=== PATIENT | female | born 1980 | race Caucasian/White ===

== ENCOUNTER → 2018-06-30 | Outpatient (REF) ==
[~2018-06-30] MED LIST: EFFE150C OR
== END ==
LOC: M EMP 13:59
PROVIDERS: ATTEND Nurse Practitioner Family
DX: Z02.89 Encounter for other administrative examinations (principal)

== ENCOUNTER → 2020-11-11 | Outpatient (CLI) | payer OTHER ==
[2020-11-11 05:57] LABS: BASO # 0.1 10^3/uL (0.0-0.2); BASO % 1.2 % (0.0-1.0); EOS # 0.1 10^3/uL (0.0-0.5); EOS % 1.4 % (0.0-3.0); HEMATOCRIT 41.4 % (36.0-47.0); HEMOGLOBIN 13.9 g/dl (12.0-15.5); LYMPH # 2.6 10^3/uL (1.5-5.0); LYMPH % 37.5 % (24.0-44.0); MEAN CORPUSCULAR HEMOGLOBIN 29.2 pg (27.0-33.0); MEAN CORPUSCULAR HGB CONC 33.6 g/dl (32.0-36.5); MONO # 0.6 10^3/uL (0.0-0.8); NEUTROPHILS # 3.6 10^3/uL (1.5-8.5); NEUTROPHILS % 51.8 % (36.0-66.0); PLATELET COUNT, AUTOMATED 278 10^3/uL (150-450); RED BLOOD COUNT 4.76 10^6/uL (4.00-5.40); WHITE BLOOD COUNT 6.9 10^3/uL (4.0-10.0)
[2020-11-11 06:15] LABS: HEMOGLOBIN A1c 5.1 %
[2020-11-11 06:38] LABS: ALBUMIN 4.3 GM/DL (3.2-5.2); ALT/SGPT 22 U/L (12-78); BILIRUBIN,TOTAL 0.3 MG/DL (0.2-1.0); BLOOD UREA NITROGEN 12 MG/DL (7-18); CALCIUM LEVEL 8.6 MG/DL (8.5-10.1); CARBON DIOXIDE LEVEL 31 MEQ/L (21-32); CHLORIDE LEVEL 105 MEQ/L (98-107); CHOLESTEROL LEVEL 161 MG/DL (<200); CHOLESTEROL RISK RATIO 3.096 (<5); CREATININE FOR GFR 0.66 MG/DL (0.55-1.30); FREE T4 0.96 NG/DL (0.76-1.46); GLOMERULAR FILTRATION RATE > 60.0 (>60); GLUCOSE, FASTING 90 MG/DL (70-100); HDL CHOLESTEROL 52 MG/DL (>40); LDL CHOLESTEROL 81 MG/DL (<100); NON-HDL-C 109 MG/DL; POTASSIUM SERUM 3.9 MEQ/L (3.5-5.1); SODIUM LEVEL 139 MEQ/L (136-145); TOTAL PROTEIN 7.4 GM/DL (6.4-8.2); TRIGLYCERIDES LEVEL 138 MG/DL (<150)
[2020-11-11 08:17] LABS: TOTAL 25(OH) VITAMIN D 48.7 NG/ML (30.0-100.0)
== END ==
LOC: M LAB 05:31
PROVIDERS: ATTEND Nurse Practitioner Family
DX: R53.83 Other fatigue (principal); E55.9 Vitamin D deficiency, unspecified; Z13.220 Encounter for screening for lipoid disorders; Z13.228 Encounter for screening for other metabolic disorders

== ENCOUNTER → 2020-11-25 | Outpatient (REF) | LOC: M EMP 12:34 | PROVIDERS: ATTEND Family Medicine | DX: Z20.822 Contact with and (suspected) exposure to COVID-19 (principal) ==

== ENCOUNTER → 2020-12-28 | Outpatient (CLI) | payer BC | LOC: M LAB 06:04 | PROVIDERS: ATTEND Nurse Practitioner Family | DX: Z01.84 Encounter for antibody response examination (principal) ==

== ENCOUNTER → 2021-01-19 | Outpatient (REF) | LOC: M EMP 09:23 | PROVIDERS: ATTEND Family Medicine | DX: Z11.52 Encounter for screening for COVID-19 (principal) ==

== ENCOUNTER 2021-01-22 15:40 | Emergency (ER) | payer BC ==
[~2021-01-22] VITALS: Ht 170.2 cm; Wt 72.2 kg
[~2021-01-22 15:40] MED LIST changes: -PRED20TA PO; -VENTAER INH
[2021-01-22 15:41] VITALS: BP 139/68
--- OUTSIDE RECORDS SUMMARY | 2021-01-22 15:47 | CCD ---
Author Author [facility] Organization [facility] Address Unknown Phone Unavailable Care Team Providers Care Transaction Advisory Services Manager Name Role Phone Bri Barajas Unavailable PROBLEMS Type Condition ICD9-CM Code [id number] Code Onset Dates Condition S tatus W/U Status Risk SNOMED Code Notes Problem Anxiety F41.9 Active confirmed 99021385 Problem Vitamin D deficiency, unspecified E55.9 Active con firmed [id number] ALLERGIES Allergen (clinical drug ingredient) Drug/Non Drug Allergy do cumented on EMR Reaction Allergy Type Onset Date Status Effexor Bleeding diathesis Drug Allergy Acti ve ENCOUNTERS from 1982 to 2021-01-06 Encounter Location Date Provider Diagnosis [address] [phone] [place] [address] Jan, Bri Barajas Anxiety F41.9 IMMUNIZATIONS No Information SOCIAL HISTORY Sex Assigned At : Social History Observation Description Sex Assigned At Unknown Education: Question Answer Notes Level of Education: Graduate Language: Question Answer Notes Languages spoken: Ukrainian Oriental Orthodox: Question Answer Notes Oriental Orthodox 08 Church Sexual Hx: Question Answer Notes Had sex in the last 12 months (vaginal, oral, or anal)? Yes LMP: mirena Alcohol Screening: Question Answer Notes Did you have a drink containing alcohol in the past year? Ye s Points 1 Interpretation Negative How often did you have six or more drinks on one occas ion in the past year? Never (0 points) How many drinks did you have on a typica l day when you were drinking in the past year? 1 or 2 (0 points) How often did you have a drink containing alcohol in t he past year? Monthly or less (1 point) REASON FOR REFERRAL No Information VITAL SIGNS No information MEDICATIONS Medication SIG (Take, Route, Frequency, Duration) Notes Start Da te End Date Status Escitalopram Oxalate 10 MG 1 tablet Orally Once a day for 90 day (s) Nov, Active PROCEDURES No Information RESULTS No Results REASON FOR VISIT lexapro MEDICAL (GENERAL) HISTORY Type Description Date Medical History h/o childhood asthma Medical History h/o depression Medical History tick bourne illness Medical History leep Medical History D/c after miscarriage Surgical History brest augmentation 06/2020 Hospitalization History childbirths Goals Section No Information Health Concerns No Information MEDICAL EQUIPMENT No Information MENTAL STATUS No Information FUNCTIONAL STATUS No Information ASSESSMENTS Encounter Date Diagnosis Assessment Notes Treatment Notes Treatm ent Clinical Notes Jan, Anxiety (ICD-10 - F41.9) PLAN OF TREATMENT Medication Medication Name Sig Start Date Stop Date Escitalopram Oxalate 10 MG 1 tablet Orally Once a day for 90 day(s) Nov, Insurance Providers Payer Name Payer Address Payer Phone Insured Name Patient Relati onship to Insured Coverage Start Date Coverage End Date [facility] [address] [id number] [facility] [phone] self
--- OUTSIDE RECORDS SUMMARY | 2021-01-22 15:47 | CCD ---
Author Author [facility] Organization [facility] Address Unknown Phone Unavailable Care Team Providers Care Laser Cutter Name Role Phone Bri Barajas Unavailable PROBLEMS Type Condition ICD9-CM Code [id number] Code Onset Dates Condition S tatus W/U Status Risk SNOMED Code Notes Problem Anxiety F41.9 Active confirmed [id number] Problem Vitamin D deficiency, unspecified E55.9 Active con firmed [id number] ALLERGIES Allergen (clinical drug ingredient) Drug/Non Drug Allergy do cumented on EMR Reaction Allergy Type Onset Date Status Effexor Bleeding diathesis Drug Allergy Acti ve ENCOUNTERS from 1982 to 2021-01-05 Encounter Location Date Provider Diagnosis [address] [phone] [place] [address] Jan, Bri Barajas Anxiety F41.9 IMMUNIZATIONS No Information SOCIAL HISTORY Sex Assigned At : Social History Observation Description Sex Assigned At Unknown Education: Question Answer Notes Level of Education: Graduate Language: Question Answer Notes Languages spoken: Icelandic Christian: Question Answer Notes Christian 08 Gnosticist Sexual Hx: Question Answer Notes Had sex [...] Information RESULTS No Results REASON FOR VISIT refill-lexapro MEDICAL (GENERAL) HISTORY Type Description Date Medical [...] Insured Coverage Start Date Coverage End Date [facility] [address] [id number] [facility] [id number] self
--- OUTSIDE RECORDS SUMMARY | 2021-01-22 15:47 | CCD ---
Author Author [facility] Organization [facility] Address Unknown Phone Unavailable Care Team Providers Care Cigar Wrapper Name Role Phone Bri Barajas Unavailable PROBLEMS Type Condition ICD9-CM Code [id number] Code Onset Dates Condition S tatus W/U Status Risk SNOMED Code Notes Problem Anxiety F41.9 Active confirmed [id number] Problem Vitamin D deficiency, unspecified E55.9 Active con firmed [id number] ALLERGIES Allergen (clinical drug ingredient) Drug/Non Drug Allergy do cumented on EMR Reaction Allergy Type Onset Date Status Effexor Bleeding diathesis Drug Allergy Acti ve ENCOUNTERS from 1982 to 2020-12-24 Encounter Location Date Provider Diagnosis [address] [phone] [place] [address] Dec, Bri Barajas Immunity to hepatitis B viru s demonstrated by serologic test Z01.84 and Immunity to varicella determined by serologic test Z01.84 IMMUNIZATIONS No Information SOCIAL HISTORY Sex Assigned At : Social History Observation Description Sex Assigned At Unknown Education: Question Answer Notes Level of Education: Graduate Language: Question Answer Notes Languages spoken: Polish Anabaptist: Question Answer Notes Anabaptist 08 [employer] Sexual Hx: Question Answer Notes Had sex [...] 1 tablet Orally Once a day for 30 day (s) Nov, Active PROCEDURES No Information RESULTS No Results REASON FOR VISIT clinical rotation titers MEDICAL (GENERAL) HISTORY Type Description Date Medical [...] Notes Treatment Notes Treatm ent Clinical Notes Dec, Immunity to hepatitis B viru s demonstrated by serologic test (ICD- 10 - Z01.84) Dec, Immunity to varicella determ ined by serologic test (ICD-10 - Z01.84) PLAN OF TREATMENT Medication Medication Name Sig Start Date Stop Date Escitalopram Oxalate 10 MG 1 tablet Orally Once a day for 30 day(s) Nov, Treatment Notes Test Name Order Date HEPATITIS B SURFACE ANTIBODY 2020-12-23 HERPES ZOSTER, VARICELLA IgG 2020-12-23 Insurance Providers Payer Name Payer Address Payer Phone Insured Name Patient Relati onship to Insured Coverage Start Date Coverage End Date [facility] [address] [id number] [facility] [phone] self
--- OUTSIDE RECORDS SUMMARY | 2021-01-22 15:47 | CCD ---
Author Author [facility] Organization [facility] Address Unknown Phone Unavailable Care Team Providers Care Patternmaker Bench Name Role Phone Bri Barajas Unavailable PROBLEMS Type Condition ICD9-CM Code [id number] Code Onset Dates Condition S tatus W/U Status Risk SNOMED Code Notes Problem Anxiety F41.9 Active confirmed [id number] Problem Vitamin D deficiency, unspecified E55.9 Active con firmed [id number] ALLERGIES Allergen (clinical drug ingredient) Drug/Non Drug Allergy do cumented on EMR Reaction Allergy Type Onset Date Status Effexor Bleeding diathesis Drug Allergy Acti ve ENCOUNTERS from 1982 to 2020-11-13 Encounter Location Date Provider Diagnosis [address] [phone] [place] [address] Nov, Bri Barajas Encounter to establish care Z76.89 ; Annual physical exam Z00.00 ; Screening for lipid disorders Z13.220 ; Screening for metabolic disorder Z13.228 ; Fatigue, unspecified type R53.83 ; Vitamin D deficiency, unspecified E55.9 and Anxiety F41.9 IMMUNIZATIONS No Information SOCIAL HISTORY Sex Assigned At : Social History Observation Description Sex Assigned At Unknown Education: Question Answer Notes Level of Education: Graduate Language: Question Answer Notes Languages spoken: Frisian Jain: Question Answer Notes Jain 08 Cheondoism Sexual Hx: Question Answer Notes Had sex [...] REASON FOR REFERRAL No Information VITAL SIGNS Weight 163 lbs Nov, Weight-kg 73.94 kg Nov, Height 67 in Nov, BMI 25.53 kg/m2 Nov, Heart Rate 78 /min Nov, Respiratory Rate 16 /min Nov, Temperature 97.4 degrees Fahrenheit Nov, Oximetry 100% Nov, Blood pressure systolic 118 mm Hg Nov, Blood pressure diastolic 72 mm Hg Nov, MEDICATIONS Medication SIG (Take, Route, Frequency, Duration) Notes Start Da te End Date Status Escitalopram Oxalate 10 MG 1 tablet Orally Once a day for 30 day (s) Nov, Active PROCEDURES No Information RESULTS Component Value Reference Range CBC with Differential Reviewed date:11/11/2020 07:52:53 Interpretation: Performing Lab:[facility], [facility] [address] [address] , ,[facility] WHITE BLOOD COUNT 6.9 4.0-10.0 RED BLOOD COUNT 4.76 4.00-5.40 HEMOGLOBIN 13.9 12.0-15.5 HEMATOCRIT 41.4 36.0-47.0 MEAN CORPUSCULAR VOLUME 87.0 80.0-96.0 MEAN CORPUSCULAR HEMOGLOBIN 29.2 27.0-33.0 MEAN CORPUSCULAR HGB CONC 33.6 32.0-36.5 RED CELL DISTRIBUTION WIDTH 12.0 11.5-14.5 PLATELET COUNT, AUTOMATED 278 150-450 NEUTROPHILS % 51.8 36.0-66.0 LYMPH % 37.5 24.0-44.0 MONO % 8.0 2.0-8.0 EOS % 1.4 0.0-3.0 BASO % 1.2 0.0-1.0 NEUTROPHILS # 3.6 1.5-8.5 LYMPH # 2.6 1.5-5.0 MONO # 0.6 0.0-0.8 EOS # 0.1 0.0-0.5 BASO # 0.1 0.0-0.2 Comprehensive Metabolic Profile (CMP) Reviewed date:11/11/2020 11:10:19 Interpretation: Performing Lab:[facility] [address] [facility] [address] , ,[place] [address] GLUCOSE, FASTING 90 70-100 BLOOD UREA NITROGEN 12 7-18 CREATININE FOR GFR 0.66 0.55-1.30 GLOMERULAR FILTRATION RATE > 60.0 >60 SODIUM LEVEL 139 136-145 POTASSIUM SERUM 3.9 3.5-5.1 CHLORIDE LEVEL 105 98-107 CARBON DIOXIDE LEVEL 31 21-32 CALCIUM LEVEL 8.6 8.5-10.1 AST/SGOT 13 7-37 ALT/SGPT 22 12-78 ALKALINE PHOSPHATASE 50 45-117 BILIRUBIN,TOTAL 0.3 0.2-1.0 TOTAL PROTEIN 7.4 6.4-8.2 ALBUMIN 4.3 3.2-5.2 ALBUMIN/GLOBULIN RATIO 1.4 1.2-2.2 HEMOGLOBIN A1c Reviewed date:11/11/2020 07:52:43 Interpretation: Performing Lab:[facility] [address] [facility] [address] , ,[place] [address] HEMOGLOBIN A1c 5.1 ESTIMATED AVERAGE GLUCOSE 100 60-110 LIPID PANEL (CARDIAC RISK) Reviewed date:11/11/2020 11:10:23 Interpretation: Performing Lab:[facility] [address] [address] , ,[place] [address] TRIGLYCERIDES LEVEL 138 <150 CHOLESTEROL LEVEL 161 <200 HDL CHOLESTEROL 52 >40 LDL CHOLESTEROL 81 <100 NON-HDL-C 109 CHOLESTEROL RISK RATIO 3.096 <5 FREE T4 & TSH PANEL Reviewed date:11/11/2020 11:10:28 Interpretation: Performing Lab:[facility] [address] [facility] [address] , ,[place] [address] THYROID STIMULATING HORMONE 2.920 0.358-3.740 FREE T4 0.96 0.76-1.46 VITAMIN D 25-HYDROXY Reviewed date:11/11/2020 11:10:34 Interpretation: Performing Lab:[facility], [facility] [address] [facility] [facility] [id number] , ,[place] [address] TOTAL 25(OH) VITAMIN D 48.7 30.0-100.0 REASON FOR VISIT OFFICE REP - to Establish MEDICAL (GENERAL) HISTORY Type Description Date Medical [...] Notes Treatment Notes Treatm ent Clinical Notes Nov, Encounter to establish care (ICD-10 - Z76.89) Establishing care Nov, Annual physical exam (ICD-10 - Z00.00) obtai labs Nov, Screening for lipid disorders (ICD-10 - Z13.220) screening Nov, Screening for metabolic disorder (ICD-10 - Z13.2 28) screening Nov, Fatigue, unspecified type (ICD-10 - R53.83) obtain labs Nov, Vitamin D deficiency, unspecified (ICD-10 - E55. 9) Nov, Anxiety (ICD-10 - F41.9) CBT measures discussed S SI/[place] Trial of lexapro meds effects /side effects discussed PLAN OF TREATMENT Medication Medication Name Sig Start Date Stop Date Escitalopram Oxalate 10 MG 1 tablet Orally Once a day for 30 day(s) Nov, Treatment Notes Assessment Notes Clinical Notes Encounter to establish care Establishing care Annual physical exam obtai labs Screening for lipid disorders screening Screening for metabolic disorder screeni ng Fatigue, unspecified type obtain labs Anxiety CBT measures discuss edS SI/HITrial of lexapromeds effects /side effects discussed Future Test Test Name Order Date CBC with Differential [id number] Comprehensive Metabolic Profile (CMP) [id number] LIPID PANEL (CARDIAC RISK) [id number] HEMOGLOBIN A1c [id number] FREE T4 & TSH PANEL [id number] VITAMIN D 25-HYDROXY [id number] Next Appt Details 1 Year Reason: Insurance Providers Payer Name Payer Address Payer Phone Insured Name Patient Relati onship to Insured Coverage Start Date Coverage End Date [facility] [id number] [facility] [phone] self
--- OUTSIDE RECORDS SUMMARY | 2021-01-22 15:47 | CCD | Continuity of Care Document ---
Author Author Giulia JULES Organization Unknown Address [address] [place] [address] Phone [phone] Care Team Providers Care System Safety Manager Name Role Phone Walker Araya MD [facility] [phone] Problems Active Problems Provider Date Breast lump Daphne Hernandez WHNP Onset: 06/26/2015 Social History Type Date Description Comments Sex Unknown Tobacco Use Start: Unknown Non-smoker, Non-drinker, Non-louisa g User Recreational Drug Use Former Marijuana Use Tobacco Use Start: Unknown Patient has never smoked Smoking Status Reviewed: 10/28/20 Patient has never smoked Tattoo/Piercing Tattoo Tattoo/Piercing Pierced ears Sun Exposure moderate amount of sun exposure Seat Belt/Car Seat always uses seat belt Allergies, Adverse Reactions, Alerts Active Allergies Reaction Severity Comments Date Nkda 02/07/2006 Medications Active Medications SIG Qnty Indications Ordering Provide r Date Metronidazole 500mg Tablets one tab by mouth twice a day x 7 days 14tabs Columba Jules MD Mirena (52 MG) 20mcg/24HR IUD 1units Z30.8 Columba Jules MD 12/07/2019 Neurontin 100mg Capsules Unknown Claritin 10mg Tablets one by mouth daily as needed Unknown Immunizations Description No Information Available Vital Signs Date Vital Result Comment 12/07/2019 2:00pm BP Systolic 106 mmHg BP Diastolic 62 mmHg Height 66 inches 5'6" Weight 158.00 lb BMI (Body Mass Index) 25.5 kg/m2 BSA (Body Surface Area) 1.81 m2 06/26/2015 10:32am BP Systolic 124 mmHg BP Diastolic 82 mmHg Height 66 inches 5'6" Weight 149.00 lb BMI (Body Mass Index) 24.0 kg/m2 BSA (Body Surface Area) 1.76 m2 Last Menstrual Period [id number] Results Description No Information Available Procedures Date Code Description Status 10/28/2020 03760 Office/Outpatient Established Claudine w MDM 20-29 Min Completed Medical Devices Description No Information Available Encounters Type Date Location Provider Dx Diagnosis Office Visit 10/28/2020 8:30a [facility] car dispatcher Columba Jules MD N7 6.0 Acute vaginitis Assessments Date Code Description Provider 10/28/2020 N76.0 Acute vaginitis Columba Jules Plan of Treatment Future Appointment(s):* 12/19/2020 2:00 pm - Columba Jules MD at [facility] car dispatcher 10/28/2020 - Columba Jules MD* N76.0 Acute vaginitis Functional Status Description No Information Available Mental Status Description No Information Available Referrals Description No Information Available
--- OUTSIDE RECORDS SUMMARY | 2021-01-22 15:48 | CCD ---
Author Author [facility] Organization [facility] Address Unknown Phone Unavailable Care Team Providers Care Personnel And Payroll Technician Name Role Phone MEGGAN, A CHIP GILMORE Unavailable Unavailable MEGGAN, A CHIP GILMORE Unavailable Unavailable MEGGAN, A CHIP GILMORE Unavailable Unavailable MEGGAN, A CHIP GILMORE Unavailable Unavailable MEGGAN, A CHIP GILMORE Unavailable Unavailable MEGGAN, A CHIP GILMORE Unavailable Unavailable MEGGAN, A CHIP GILMORE Unavailable Unavailable MEGGAN, A CHIP GILMORE Unavailable Unavailable MEGGAN, A CHIP GILMORE Unavailable Unavailable MEGGAN, A CHIP GILMORE Unavailable Unavailable MEGGAN, A CHIP GILMORE Unavailable Unavailable MEGGAN, A CHIP GILMORE Unavailable Unavailable MEGGAN, A CHIP GILMORE Unavailable Unavailable MEGGAN, A CHIP GILMORE Unavailable Unavailable MEGGAN, A CHIP GILMORE Unavailable Unavailable MEGGAN, A CHIP GILMORE Unavailable Unavailable MEGGAN, A CHIP GILMORE Unavailable Unavailable MEGGAN, A CHIP GILMORE Unavailable Unavailable MEGGAN, A CHIP GILMORE Unavailable Unavailable MEGGAN, A CHIP GILMORE Unavailable Unavailable MEGGAN, A CHIP GILMORE Unavailable Unavailable MEGGAN, A CHIP GILMORE Unavailable Unavailable MEGGAN, A CHIP GILMORE Unavailable Unavailable MEGGAN, A CHIP GILMORE Unavailable Unavailable MEGGAN, A CHIP GILMORE Unavailable Unavailable MEGGAN, A CHIP GILMORE Unavailable Unavailable MEGGAN, A CHIP GILMORE Unavailable Unavailable MEGGAN, A CHIP GILMORE Unavailable Unavailable MEGGAN, A CHIP GILMORE Unavailable Unavailable MEGGAN, A CHIP GILMORE Unavailable Unavailable MEGGAN, A CHIP GILMORE Unavailable Unavailable MEGGAN, A CHIP GILMORE Unavailable Unavailable MEGGAN, A CHIP MD Unavailable Unavailable MEGGAN, Amrik ARROYO MD Unavailable Unavailable MEGGAN, A CHIP Unavailable Unavailable MEGGAN, Amrik ARROYO MD Unavailable Unavailable MEGGAN, Amrik GIVENSCHIP Unavailable Unavailable MEGGAN, Amrik GIVENSCHIP Unavailable Unavailable MEGGAN, A CHIP MD Unavailable Unavailable MEGGAN, A CHIP MD Unavailable Unavailable MEGGAN, A CHIP Unavailable Unavailable MEGGAN, A CHIP Unavailable Unavailable MEGGAN, A CHIP Unavailable Unavailable MEGGAN, A CHIP MD Unavailable Unavailable MEGGAN, A CHIP MD Unavailable Unavailable MEGGAN, A CHIP MD Unavailable Unavailable MEGGAN, A CHIP MD Unavailable Unavailable MEGGAN, A CHIP MD Unavailable Unavailable MEGGAN, A CHIP MD Unavailable Unavailable MEGGAN, A CHIP Unavailable Unavailable MEGGAN, A CHIP Unavailable Unavailable MEGGAN, Amrik ARROYO MD Unavailable Unavailable MEGGAN, A CHIP Unavailable Unavailable MEGGAN, Amrik ARROYO MD Unavailable Unavailable MEGGAN, Amrik ARROYO MD Unavailable Unavailable MEGGAN, Amrik ARROYO MD Unavailable Unavailable MEGGAN, Amrik ARROYO MD Unavailable Unavailable MEGGAN, Amrik ARROYO MD Unavailable Unavailable JULES, Yola PANCHAL MD Unavailable Unavailable JULES, Yola PANCHAL MD Unavailable Unavailable JULES, Yola PANCHAL MD Unavailable Unavailable JULES, Yola PANCHAL MD Unavailable Unavailable JULES, Yola PANCHAL MD Unavailable Unavailable JULES, Yola PANCHAL MD Unavailable Unavailable JULES, Yola PANCHAL MD Unavailable Unavailable JULES, Yola PANCHAL MD Unavailable Unavailable JULES, Yola PANCHAL MD Unavailable Unavailable JULES, Yola PANCHAL MD Unavailable Unavailable JULES, Yola PANCAHL MD Unavailable Unavailable JULES, Yola PANCHAL MD Unavailable Unavailable JULES, Yola PANCHAL MD Unavailable Unavailable JULES, Yola PANCHAL MD Unavailable Unavailable JULES, Yola PANCHAL MD Unavailable Unavailable JULES, Yola PANCHAL MD Unavailable Unavailable JULES, Yola PANCHAL MD Unavailable Unavailable JULES, Yola PANCHAL MD Unavailable Unavailable JULES, L ABDULKADIR GILMORE Unavailable Unavailable JULES, Yola PANCHAL MD Unavailable Unavailable JULES, Yola PANCHAL MD Unavailable Unavailable JULES, Yola PANCHAL MD Unavailable Unavailable JULES, Yola PANCHAL MD Unavailable Unavailable JULES, Yola PANCHAL MD Unavailable Unavailable JULES, Yola PANCHAL MD Unavailable Unavailable JULES, Yola PANCHAL MD Unavailable Unavailable JULES, Yola PANCHAL MD Unavailable Unavailable JULES, Yola PANCHAL MD Unavailable Unavailable JULES, Yola PANCHAL MD Unavailable Unavailable JULES, Yola PANCHAL MD Unavailable Unavailable JULESYola MD Unavailable Unavailable JORGE AYola MD Unavailable Unavailable JORGE AYola MD Unavailable Unavailable JORGE AYola MD Unavailable Unavailable JORGE A, Yola PANCHAL MD Unavailable Unavailable JORGE A, Yola PANCHAL MD Unavailable Unavailable JORGE A, Yola PANCHAL MD Unavailable Unavailable JORGE A, Yola PANCHAL MD Unavailable Unavailable JORGE A, Yola PANCHAL MD Unavailable Unavailable JORGE A, Yola ABDULKADIR GILMORE Unavailable Unavailable JORGE A, Yola PANCHAL MD Unavailable Unavailable JORGE A, Yola PANCHAL MD Unavailable Unavailable JULES, Yola PANCHAL MD Unavailable Unavailable JULES, Yola ABDULKADIR GILMORE Unavailable Unavailable JULES, Yola PANCHAL MD Unavailable Unavailable Feola, T Maryellen PA Unavailable Unavailable Feola, T Maryellen PA Unavailable Unavailable Feola, T Maryellen PA Unavailable Unavailable Feola, T Maryellen PA Unavailable Unavailable Feola, T Mareyllen PA Unavailable Unavailable Feola, T Maryellen PA Unavailable Unavailable Feola, T Maryellen PA Unavailable Unavailable Feola, T Maryellen PA Unavailable Unavailable Feola, T Maryellen PA Unavailable Unavailable Feola, T Maryellen PA Unavailable Unavailable Feola, T Maryellen PA Unavailable Unavailable Feola, T Maryellen PA Unavailable Unavailable Feola, T Maryellen PA Unavailable Unavailable Feola, T Maryellen PA Unavailable Unavailable Feola, T Maryellen PA Unavailable Unavailable Feola, T Maryellen PA Unavailable Unavailable Feola, T Maryellen PA Unavailable Unavailable Feola, T Maryellen PA Unavailable Unavailable Feola, T Maryellen PA Unavailable Unavailable Feola, T Maryellen PA Unavailable Unavailable Feola, T Maryellen PA Unavailable Unavailable Feola, T Maryellen PA Unavailable Unavailable Feola, T Maryellen PA Unavailable Unavailable Feola, T Maryellen PA Unavailable Unavailable Feola, T Maryellen PA Unavailable Unavailable Feola, T Maryellen PA Unavailable Unavailable Feola, T Maryellen PA Unavailable Unavailable Feola, T Maryellen PA Unavailable Unavailable Feola, T Maryellen PA Unavailable Unavailable Feola, T Maryellen PA Unavailable Unavailable Feola, T Maryellen PA Unavailable Unavailable Feola, T Maryellen PA Unavailable Unavailable Feola, T Maryellen PA Unavailable Unavailable Feola, T Maryellne PA Unavailable Unavailable Feola, T Maryellen PA Unavailable Unavailable Feola, T Maryellen PA Unavailable Unavailable Feola, T Maryellen PA Unavailable Unavailable Feola, T Maryellen PA Unavailable Unavailable Feola, T Maryellen PA Unavailable Unavailable Feola, T Maryellen PA Unavailable Unavailable Feola, T Maryellen PA Unavailable Unavailable MEGAGN, A CHIP MD Unavailable Unavailable MEGGAN, A CHIP MD Unavailable Unavailable MEGGAN, A CHIP MD Unavailable Unavailable MEGGAN, A CHIP MD Unavailable Unavailable MEGGAN, A CHIP MD Unavailable Unavailable MEGGAN, A CHIP MD Unavailable Unavailable MEGGAN, A CHIP MD Unavailable Unavailable MEGGAN, A CHIP MD Unavailable Unavailable MEGGAN, A CHIP MD Unavailable Unavailable MEGGAN, A CHIP MD Unavailable Unavailable MEGGAN, A CHIP MD Unavailable Unavailable MEGGAN, A CHIP MD Unavailable Unavailable MEGGAN, A CHIP MD Unavailable Unavailable MEGGAN, A CHIP MD Unavailable Unavailable MEGGAN, A CHIP MD Unavailable Unavailable MEGGAN, A CHIP MD Unavailable Unavailable MEGGAN, A CHIP MD Unavailable Unavailable MEGGAN, A CHIP MD Unavailable Unavailable MEGGAN, A CHIP MD Unavailable Unavailable MEGGAN, A CHIP MD Unavailable Unavailable MEGGAN, A CHIP MD Unavailable Unavailable MEGGAN, A CHIP MD Unavailable Unavailable MEGGAN, A CHIP MD Unavailable Unavailable MEGGAN, A CHIP MD Unavailable Unavailable MEGGAN, A CHIP MD Unavailable Unavailable MEGGAN, A CHIP MD Unavailable Unavailable MEGGAN, A CHIP MD Unavailable Unavailable MEGGAN, A CHIP MD Unavailable Unavailable MEGGAN, A CHIP MD Unavailable Unavailable MEGGAN, A CHIP MD Unavailable Unavailable MEGGAN, A CHIP MD Unavailable Unavailable MEGGAN, A CHIP MD Unavailable Unavailable MEGGAN, A CHIP MD Unavailable Unavailable MEGGAN, A CHIP MD Unavailable Unavailable MEGGAN, A CHIP MD Unavailable Unavailable MEGGAN, A CHIP MD Unavailable Unavailable MEGGAN, A CHIP MD Unavailable Unavailable MEGGAN, A CHIP MD Unavailable Unavailable MEGGAN, A CHIP MD Unavailable Unavailable MEGGAN, A CHIP MD Unavailable Unavailable MEGGAN, A CHIP MD Unavailable Unavailable MEGGAN, A CHIP MD Unavailable Unavailable MEGGAN, A CHIP MD Unavailable Unavailable MEGGAN, A CHIP MD Unavailable Unavailable MEGGAN, A CHIP MD Unavailable Unavailable MEGGAN, A CHIP MD Unavailable Unavailable MEGGAN, A CHIP MD Unavailable Unavailable MEGGAN, A CHIP MD Unavailable Unavailable MEGGAN, A CHIP MD Unavailable Unavailable MEGGAN, A CHIP MD Unavailable Unavailable MEGGAN, A CHIP MD Unavailable Unavailable MEGGAN, A CHIP MD Unavailable Unavailable MEGGAN, A CHIP MD Unavailable Unavailable MEGGAN, A CHIP MD Unavailable Unavailable MEGGAN, A CHIP MD Unavailable Unavailable MEGGAN, Amrik ARROYO MD Unavailable Unavailable MEGGAN, Amrik ARROYO MD Unavailable Unavailable MEGGAN, Amrik ARROYO MD Unavailable Unavailable Re-disclosure Warning The records that you are about to access may contain information from federally-assisted alcohol or drug abuse programs. If such information is present, then the following federally mandated warning applies: This information has been disclosed to you from records protected by federal confidentiality rules (42 CFR part 2). The federal rules prohibit you from making any further disclosure of this information unless further disclosure is expressly permitted by the written consent of the person to whom it pertains or as otherwise permitted by 42 CFR part 2. A general authorization for the release of medical or other information is NOT sufficient for this purpose. The Federal rules restrict any use of the information to criminally investigate or prosecute any alcohol or drug abuse patient.The records that you are about to access may contain highly sensitive health information, the redisclosure of which is protected by Article 27-F of the [facility] Public Health law. If you continue you may have access to information: Regarding HIV / AIDS; Provided by facilities licensed or operated by the [facility] Office of Mental Health; or Provided by the [facility] Office for People With Developmental Disabilities. If such information is present, then the following [facility] mandated warning applies: This information has been disclosed to you from confidential records which are protected by state law. State law prohibits you from making any further disclosure of this information without the specific written consent of the person to whom it pertains, or as otherwise permitted by law. Any unauthorized further disclosure in violation of state law may result in a fine or residential sentence or both. A general authorization for the release of medical or other information is NOT sufficient authorization for further disc losure. Encounters Encounter Providers Location Date Indications Data Source(s ) Unknown [address] [facility] [address] [address] 01/05/2021 12:00:00 AM EDT eCW1 ([facility]) Unknown [address] [facility] [address] [place] [address] 01/05/2021 12:00:00 AM EDT eCW1 ([facility]) Unknown [address] [facility] [place] [address] 12/23/2020 12:00:00 AM EDT eCW1 ([facility]) Outpatient 11/23/2020 08:12:28 PM EDT - 08:18:00 PM EDT [facility] ([facility]) Outpatient 11/23/2020 08:09:05 PM EDT [facility] ([facility]) [place] [address] [facility] [address] [place] [address] 11/05/2020 12:00:00 AM EDT eCW1 ([facility]) Outpatient Attender: ABDULKADIR Fernandez Woman administrative services assistant 08:30:00 AM EDT MEDENT (Fernandez Woman SENIOR TECHNICAL ANALYST) [place] ( in Healthcare facility) Attender: CHIP GUPTA MD 06/09/2020 10:45:00 AM EST - 06/09/2020 06:38:00 PM EST [facility] Outpatient Attender: CHIP GUPTA MDAdmitter: CHIP GUPTA MD 06/09/2020 10:45:00 AM EST - 06/09/2020 06:38:00 PM EST BILATERAL MICROMASTIA Z41.1 [facility] BILATERAL MICROMASTIA Z41.1 Patient discharged. Outpatient Attender: CHIP GUPTA MD 06/05/2020 01:49:29 P M EST [facility] [place] [facility] Outpatient 05/23/2020 02:05:03 PM EST [facility] ([facility]) Outpatient Attender: Maryellen NAILS 021 01:49:34 PM EST - 05/23/2020 02:45:47 PM EST [facility] ([facility] ) Outpatient Attender: Maryellen NAILS 021 03:04:37 PM EST - 05/20/2020 03:36:55 PM EST [facility] ([facility] ) Outpatient Attender: ABDULKADIR Fernandez Woman administrative services assistant 07/2019 02:00:00 PM EDT MEDENT ([facility] Woman SENIOR TECHNICAL ANALYST) Immunizations Vaccine Date Status Description Data Source(s) COVID-19 VACCINE Pfizer 2020 12:00:00 AM EST completed [facility] Vaccine Series Complete: YESThis Data wa s Submitted to [facility] Via [employer] COVID-19 VACCINE Pfizer 03/25/2020 12:00:00 AM EST completed [facility] Vaccine Series Complete: NOThis Data was Submitted to [facility] Via [employer] Medications Medication Brand Name Start Date Product Form Dose Route Admi nistrative Instructions Pharmacy Instructions Status Indications Reaction Description Data Source(s) Escitalopram 10 MG Oral Tablet Escitalopram Oxalate 10 MG Escitalopram Oxalate 10 MG 11/05/2020 12:00:00 AM EDT 1.0 {tablet} activ e Escitalopram Oxalate 10 MG eCW1 ([facility]) Escitalopram 10 MG Oral Tablet Escitalopram Oxalate 10 MG Escitalopram Oxalate 10 MG 11/05/2020 12:00:00 AM EDT 1.0 {tablet} activ e Escitalopram Oxalate 10 MG eCW1 ([facility]) Escitalopram 10 MG Oral Tablet Escitalopram Oxalate 10 MG Escitalopram Oxalate 10 MG 11/05/2020 12:00:00 AM EDT 1.0 {tablet} activ e Escitalopram Oxalate 10 MG eCW1 ([facility]) Escitalopram 10 MG Oral Tablet Escitalopram Oxalate 10 MG Escitalopram Oxalate 10 MG 11/05/2020 12:00:00 AM EDT 1.0 {tablet} activ e Escitalopram Oxalate 10 MG eCW1 ([facility]) Metronidazole 500 MG Oral Tablet Metronidazole 10/28/2020 12:00:00 AM EDT ORAL active MEDENT ([facility] Woman SENIOR TECHNICAL ANALYST) Levonorgestrel 0.044293 MG/HR Drug Implant [Mirena] Mirena ( 52 MG) 12/07/2019 12:00:00 AM EDT active M EDENT (Fernandez Woman SENIOR TECHNICAL ANALYST) Insurance Providers Payer name Policy type / Coverage type Policy ID Covered constitution party ID Covered constitution party's relationship to rhodes Policy [place] Plan Information Formula [employer] [id number] Self [id number] RPR- Needs Payer Match [id number] Jossy f [id number] [facility] Preferred Provider Org. [id number] Self [id number] [employer] [id number] Self [id number] OTHER A [id number] [facility] [id number] [facility] [id number] [place] 306/806 [id number] SP [id number] [employer]BS [facility] [facility] 303/803 [id number] SP [id number] [place] 302/307 [id number] SP [id number] [employer] [place] [employer] [id number] SP [id number] Problems, Conditions, and Diagnoses Code Display Name Description Problem Type Effective Dates Data Source(s) E55.9 [id number] Vitamin D deficiency, unspecified Problem 11/05/2020 12:00:00 AM EDT eCW1 ([facility]) F41.9 [id number] Anxiety Problem 11/05/2020 12:00:00 AM ED T eCW1 ([facility]) Surgeries/Procedures Procedure Description Date Indications Data Source(s) OFFICE OUTPATIENT VISIT 15 MINUTES 10/28/2020 12:00:00 AM EDT MEDENT (Fernandez Woman SENIOR TECHNICAL ANALYST) Insert Intrauterine Device 12/19/2019 12:00:00 AM EDT MEDENT (Fernandez Woman SENIOR TECHNICAL ANALYST) Injection, Anesthetic Agent,Paracervical Block 020 12:00:00 AM EDT MEDENT ([facility] Woman SENIOR TECHNICAL ANALYST) Results ID Date Data Source [id number] 11/25/2020 12:36:00 PM EDT [facility] Name Value Range Interpretation Code Description Data Ailyn rce(s) Supporting Document(s) SARS coronavirus 2 RNA [Presence] in Res piratory specimen by DIAMANTE with probe detection NEGATIVE [facility] This lab was ordered by [facility] a nd reported by [facility]. ID Date Data Source [id number] 11/23/2020 08:15:00 PM EDT [facility] Name Value Range Interpretation Code Description Data Ailyn rce(s) Supporting Document(s) SARS-CoV-2 RNA Resp Ql DIAMANTE+probe NOT DETECTED [facility] This lab was ordered by ETHEL bustos and reported by [facility] Ellis. ID Date Data Source VITAMIN [id number] 11/11/2020 12:00:00 AM EDT eCW1 ([facility]) Name Value Range Interpretation Code Description Data Ailyn rce(s) Supporting Document(s) 48.7 30.0-100.0 TOTAL 25(OH) VITAMIN D eC W1 ([facility]) ID Date Data Source FREE T4 & TSH PANEL 11/11/2020 12:00:00 AM EDT eCW1 (On license of [facility]) Name Value Range Interpretation Code Description Data Ailyn rce(s) Supporting Document(s) 2.920 0.358-3.740 THYROID STIMULATING HORM ONE eCW1 ([facility]) 0.96 0.76-1.46 FREE T4 eCW1 ([facility]) ID Date Data Source LIPID PANEL (CARDIAC RISK) 11/11/2020 12:00:00 AM EDT eCW1 ( [facility]) Name Value Range Interpretation Code Description Data Ailyn rce(s) Supporting Document(s) Triglyceride [Mass/volume] in Serum or Plasma by calculation 138 <150 TRIGLYCERIDES LEVEL eCW1 ([facility]) Cholesterol [Moles/volume] in Serum or Plasma 161 <200 CHOLESTEROL LEVEL eCW1 ([facility]) Cholesterol in HDL [Moles/volume] in Serum or Plasma 52 >40 HDL CHOLESTEROL eCW1 ([facility]) Cholesterol in LDL [Mass/volume] in Serum or Plasma by calculation 81 <100 LDL CHOLESTEROL eCW1 ([facility]) 109 NON-HDL-C eCW1 ([facility]) 3.096 <5 CHOLESTEROL RISK RATIO eCW1 ([facility]) ID Date Data Source [id number] 11/11/2020 12:00:00 AM EDT eCW1 (On license of [facility]) Name Value Range Interpretation Code Description Data Ailyn rce(s) Supporting Document(s) Hemoglobin A1c/Hemoglobin.total in Blood 5.1 HEMOGLOBIN A1c eCW1 ([facility]) ID Date Data Source Comprehensive Metabolic Profile (CMP) 11/11/2020 12:00:00 AM EDT eCW1 ([facility]) Name Value Range Interpretation Code Description Data Ailyn rce(s) Supporting Document(s) 90 70-100 GLUCOSE, FASTING eCW1 (On license of [facility]) 12 7-18 BLOOD UREA NITROGEN eCW1 ([facility]) > 60.0 >60 GLOMERULAR FILTRATION RATE eCW 1 ([facility]) 0.66 0.55-1.30 CREATININE FOR GFR eCW1 ([facility]) 105 98-107 CHLORIDE LEVEL eCW1 ([facility]) 139 136-145 SODIUM LEVEL eCW1 ([facility]) 3.9 3.5-5.1 POTASSIUM SERUM eCW1 ([facility]) 13 7-37 AST/SGOT eCW1 ([facility]) 31 21-32 CARBON DIOXIDE LEVEL eCW1 ([facility]) 8.6 8.5-10.1 CALCIUM LEVEL eCW1 ([facility]) 50 45-117 ALKALINE PHOSPHATASE eCW1 ([facility]) 22 12-78 ALT/SGPT eCW1 ([facility]) 7.4 6.4-8.2 TOTAL PROTEIN eCW1 ([facility]) 4.3 3.2-5.2 ALBUMIN eCW1 ([facility]) 0.3 0.2-1.0 BILIRUBIN,TOTAL eCW1 ([facility]) 1.4 1.2-2.2 ALBUMIN/GLOBULIN RATIO eCW1 ([facility]) ID Date Data Source CBC with Differential 11/11/2020 12:00:00 AM EDT eCW1 ([facility]) Name Value Range Interpretation Code Description Data Ailyn rce(s) Supporting Document(s) 6.9 4.0-10.0 WHITE BLOOD COUNT eCW1 ([facility]) 13.9 12.0-15.5 HEMOGLOBIN eCW1 ([facility]) 4.76 4.00-5.40 RED BLOOD COUNT eCW1 ([facility]) 87.0 80.0-96.0 MEAN CORPUSCULAR VOLUME e CW1 ([facility]) 41.4 36.0-47.0 HEMATOCRIT eCW1 ([facility]) 12.0 11.5-14.5 RED CELL DISTRIBUTION WID TH eCW1 ([facility]) 29.2 27.0-33.0 MEAN CORPUSCULAR HEMOGLOB IN eCW1 ([facility]) 33.6 32.0-36.5 MEAN CORPUSCULAR HGB CONC eCW1 ([facility]) 51.8 36.0-66.0 NEUTROPHILS % eCW1 ([facility]) 278 150-450 PLATELET COUNT, AUTOMATED eCW1 ([facility]) 8.0 2.0-8.0 MONO % eCW1 ([facility]) 37.5 24.0-44.0 LYMPH % eCW1 ([facility]) 1.4 0.0-3.0 EOS % eCW1 ([facility]) 1.2 0.0-1.0 BASO % eCW1 ([facility]) 3.6 1.5-8.5 NEUTROPHILS # eCW1 ([facility]) 2.6 1.5-5.0 LYMPH # eCW1 ([facility]) 0.1 0.0-0.5 EOS # eCW1 ([facility]) 0.6 0.0-0.8 MONO # eCW1 ([facility]) 0.1 0.0-0.2 BASO # eCW1 ([facility]) ID Date Data Source [id number] 06/13/2020 10:50:00 AM EST [facility] [id number] [place], [place] [id number] NAME: EMERALD CASTRO OF : 1980REPORT: OPERATIONPATIENT NUMBER: [id number] STATUS: SDMEDICAL RECORD NUMBER: [id number] [id number] ADMISSION: 06/09/2020ATE OF DISCHARGE: 06/09/2020ATE OF PROCEDURE: 06/09/2020URGEON: Chip Gupta MDASSISTANT: JESU Lerma student.PREOPERATIVE DIAGNOSIS: Bilateral micromastia.POSTOPERATIVE DIAGNOSIS: Bilateral micromastia.OPERATION PERFORMED: Silicone dual plane breast augmentation.COMPLICATIONS: None.ESTIMATED BLOOD L OSS: Minimal.ANESTHESIA: General.DRAINS: None.IMPLANTS USED: Natrelle Inspira soft touch style SSF 450 ml smooth, round,silicone implants bilaterally.DESCRIPTION OF PROCEDURE: The patient was seen in the preop holding areaand the inframammary folds were marked bilaterally. The midline fromsternal notch to xiphoid was marked as well. The patient was then taken tothe operating room and placed in supine position on the OR table. Sequential compression stockings were placed. IV antibiotics were given. Subcutaneous heparin was given. The chest, breasts and abdomen were thenprepped and draped i n normal sterile fashion after administration ofgeneral anesthesia. I then marked out a 6 cm long incision 5 mm below thecentral portion of the inframammary fold on each side. I started on theright side by making my skin incision with a 10-blade. Cautery was thenused to get through the dermis and subcutaneous fat to get down to thepectoralis fascia. The breast gland was then elevated superiorly forapproximately 1.5 cm above the fascia with cautery. I then divided theinferior attachments of the pectoralis major muscle and fascia along theinframammary fold with cautery. The submuscular pocket was then developedin standard fashion with cautery and finger dissection. The pocket wasthen irrigated out with both Betadine and saline. No bleeding was noted. I then took a Natrelle Inspira style SSF 450 ml implant and placed it intothe right submuscular pocket. The patient was sat upright to check forpositioning of the implant on the chest wall which I thought was excellent.The patient was then laid back down and we turned our attention to the leftside performing the same procedure using another Natrelle Inspira style [id number] ml implant. With both implants in place, the patient was sat uprightto check for overall volume match and symmetry which I thought wasexcellent. The patient was then laid back down. The inframammary creaseincisions were then closed with 2-0 Vicryl subcutaneous and deep dermalsuture followed by interrupted 3-0 Monocryl deep dermal suture and running4-0 Monocryl subcuticular stitch. A couple of 5-0 plain gut sutures wereplaced as well. I then placed 4 ml of half percent Marcaine withepinephrine along each incision. The Tegaderms over the nipple/areolacomplexes were then removed. The drapes were broken down and the woundswere cleaned up. The wounds were then covered with Dermabond which wasallowed to dry. The incisions were then covered with Adaptic followed by4x4s, ABD pads and a 6-inch Senthil wrap. The patient was then extubated andbrought to the recovery room in stable condition. Counts were correct x2. There were no complications. The right breast implant had a serial numberof [id number] and the left breast implant had a serial number of [id number].DICTATED B Y: Chip Gupta, MDDictated: 06/10/2020 7:43DT: 06/10/2020 7:48Job #: [id number]:NOTE: [facility] computer generated reports are not confirmed orauthenticated unless they are signed by the providerElectronically Authenticated by:CHIP GUPTA MD On 06/13/2020 10:50 AM EST Name Value Range Interpretation Code Description Data Ailyn rce(s) Supporting Document(s) ID Date Data Source [id number] 06/04/2020 04:00:00 PM EST [facility] Name Value Range Interpretation Code Description Data Ailyn rce(s) Supporting Document(s) SARS coronavirus 2 RNA [Presence] in Res piratory specimen by DIAMANTE with probe detection NOT DETECTED [facility] This lab was reported by [facility] [place] [facility]. ID Date Data Source [id number] 06/05/2020 01:49:28 PM EST [facility] Name Value Range Interpretation Code Description Data Ailyn rce(s) Supporting Document(s) SPECIMEN DESCRIPTION [facility] [place] COVID 19 RESULT (NDET) [facility] [place] NEGATIVE COVID-19 RESULTS DONOT PRECLUDE COVID-2019 INFECTION ANDSHOULD NOT BE USED THE SOLE BASISFOR PATIENT MANAGEMENT DECISIONS. COMMENT [facility] [place] THE [place] FDA HAS MADE THIS TEST AVAILABL EUNDER AN EMERGENCY USE AUTHORIZATION(EUA) FOR THE DETECTION AND/OR DIAGNOSISOF THE VIRUS THAT CAUSES COVID-19.THIS ASSAY AMPLIFIES AND DETECTS [employer] USING SOFTWARE SYSTEMS ENGINEER- MEDIATEDAMPLIFICATIONTESTING PERFORMED ON [employer] to Share FIRST TEST [facility] [place] of [facility] [employer] [place] SYMPTOMATIC [facility] [place] DATE OF SYMPT ONSET [facility] [place] HOSPITALIZED [facility] [place] [facility] [place] of [facility] SET [facility] [place] [facility] [place] of [facility] ID Date Data Source [id number] 05/23/2020 12:00:00 AM EST [facility] Name Value Range Interpretation Code Description Data Ailyn rce(s) Supporting Document(s) SARS coronavirus 2 RNA [Presence] in Res piratory specimen by DIAMANTE with probe detection NEGATIVE [facility] by [facility]. ID Date Data Source [id number] 05/20/2020 12:00:00 AM EST [facility] Name Value Range Interpretation Code Description Data Ailyn rce(s) Supporting Document(s) SARS coronavirus 2 RNA [Presence] in Res piratory specimen by DIAMANTE with probe detection NEGATIVE [facility] This lab was ordered by [facility] and reported by [facility]. ID Date Data Source [id number] 05/20/2020 12:00:00 AM EST [facility] Name Value Range Interpretation Code Description Data Ailyn rce(s) Supporting Document(s) Carestart Rapid COVID Antigen Test Negative [facility] This lab was [facility] ID Date Data Source [id number] 12/07/2019 12:00:00 PM EDT [facility] ([facility] [employer] SENIOR TECHNICAL ANALYST) Name Value Range Interpretation Code Description Data Ailyn rce(s) Supporting Document(s) TP Reflex HPV ASCUS Laboratory test result [facility] ([employer] SENIOR TECHNICAL ANALYST) TP Reflex HPV ASCUS Laboratory test result [facility] ([employer] SENIOR TECHNICAL ANALYST) SPECIMEN PART------ A. Cervical, Endocervical, ThinPrep Pap (Digital Media Sales Consultant) CYTOLOGY HX-------- Date of Last Menstrual Period: 11/12/19 FINAL DIAGNOSIS---- INTERPRETATION: Negative for Intraepithelial Lesion or Malignancy. SPECIMEN ADEQUACY:Satisfactory for evaluation. Endocervical/transformation zone component present. Procedure Social History Code Duration Value Status Description Data Source(s ) Smoking 10/28/2020 12:00:00 AM EDT Patient has never smoked co mpleted Patient has never smoked [facility] ([facility] SENIOR TECHNICAL ANALYST) Vital Signs ID Date Data Source UNK Name Value Range Interpretation Code Description Data Source(s) Body weight 163 [lb_av] 163 [lb_av] eCW1 ([facility]) Body weight 73.94 kg 73.94 kg W1 (On license of [facility]) Body height 67 [in_i] 67 [in_i] eCW1 (On license of [facility]) Body mass index (BMI) [Ratio] 25.53 kg/m2 25.53 kg/m2 W1 ([facility]) Heart rate 78 /min 78 /min W1 ([facility]) Respiratory rate 16 /min 16 /min W1 ([facility]) Body temperature 97.4 [degF] 97.4 [degF] eCW1 ( [facility]) Systolic blood pressure 118 mm[Hg] 118 mm[Hg] e CW1 ([facility]) Diastolic blood pressure 72 mm[Hg] 72 mm[Hg] eCW1 ([facility]) Body surface area 1.81 m2 1.81 m2 [facility] ([employer] SENIOR TECHNICAL ANALYST) Systolic blood pressure 106 mm[Hg] 106 mm[Hg] M EDENT ([employer] SENIOR TECHNICAL ANALYST) Diastolic blood pressure 62 mm[Hg] 62 mm[Hg] [facility] ([facility] SENIOR TECHNICAL ANALYST) Body height 66 [in_i] 66 [in_i] [facility] ([employer] SENIOR TECHNICAL ANALYST) 5'6" Body weight 158.00 [lb_av] 158.00 [lb_av] MEDEN T ([facility] [employer] SENIOR TECHNICAL ANALYST) Body mass index (BMI) [Ratio] 25.5 kg/m2 25.5 k g/m2 [facility] ([employer] SENIOR TECHNICAL ANALYST) Body surface area Derived from formula 1.81 m2 1.81 m2 [facility] ([employer] SENIOR TECHNICAL ANALYST) Patient Treatment Plan of Care Planned Activity Planned Date Details Description Data Source (s) Escitalopram 10 MG Oral Tablet 11/05/2020 12:00:00 AM EDT eCW1 ([facility]) Escitalopram 10 MG Oral Tablet 11/05/2020 12:00:00 AM EDT eCW1 ([facility]) Escitalopram 10 MG Oral Tablet 11/05/2020 12:00:00 AM EDT eCW1 ([facility]) Escitalopram 10 MG Oral Tablet 11/05/2020 12:00:00 AM EDT eCW1 ([facility])
--- OUTSIDE RECORDS SUMMARY | 2021-01-22 15:48 | CCD | Continuity of Care Document ---
Author Author Giulia JULES Organization Unknown Address [address] [place] [id number] Phone [phone] Care Team Providers Care Stack Attendant Name Role Phone Walker Araya MD [facility] [phone] Problems Active Problems Provider Date Breast lump [...] SIG Qnty Indications Ordering Provide r Date Mirena (52 MG) 20mcg/24HR IUD 1units Z30.8 [...] Surface Area) 1.76 m2 Last Menstrual Period [id number] Results Description No Information Available Procedures Date Code Description Status 10/28/2020 19758 Office/Outpatient Established Lo w MDM 20-29 Min Completed Medical Devices Description No Information Available Encounters Type Date Location Provider Dx Diagnosis Office Visit 10/28/2020 8:30a [facility] remote sensing specialist Columba Jules MD N7 6.0 Acute vaginitis Assessments Date Code Description Provider 10/28/2020 N76.0 Acute vaginitis Columba Jules Plan of Treatment Future Appointment(s):* 12/19/2020 2:00 pm - Columba Jules MD at [facility] remote sensing specialist 10/28/2020 - Columba Jules MD* N76.0 Acute vaginitis Functional Status Description No Information Available Mental Status Description No Information Available Referrals Description No Information Available
[2021-01-22] MEDS ORDERED: NS 1,000 ML IV ONE (16:15)
[2021-01-22 16:17] LABS: BASO # 0.1 10^3/uL (0.0-0.2); BASO % 0.7 % (0.0-1.0); EOS # 0.1 10^3/uL (0.0-0.5); EOS % 0.8 % (0.0-3.0); HEMATOCRIT 43.1 % (36.0-47.0); HEMOGLOBIN 14.9 g/dl (12.0-15.5); LYMPH # 1.7 10^3/uL (1.5-5.0); LYMPH % 18.7 % (24.0-44.0); MEAN CORPUSCULAR HEMOGLOBIN 29.4 pg (27.0-33.0); MEAN CORPUSCULAR HGB CONC 34.6 g/dl (32.0-36.5); MEAN CORPUSCULAR VOLUME 85.2 fl (80.0-96.0); MONO # 0.7 10^3/uL (0.0-0.8); MONO % 7.5 % (2.0-8.0); NEUTROPHILS # 6.4 10^3/uL (1.5-8.5); NEUTROPHILS % 72.1 % (36.0-66.0); PLATELET COUNT, AUTOMATED 272 10^3/uL (150-450); RED BLOOD COUNT 5.06 10^6/uL (4.00-5.40); WHITE BLOOD COUNT 8.9 10^3/uL (4.0-10.0)
[2021-01-22 16:30] LABS: INR 1.01; PARTIAL THROMBOPLASTIN TIME 32.4 SECONDS (25.9-37.0); PROTHROMBIN TIME 13.7 SECONDS (12.7-14.5)
[2021-01-22 16:33] LABS: D-DIMER QUANT 341.17 ng/ml (<500)
[2021-01-22] MEDS: COMBIVENT RESPIMAT 100-20MCG INHALER 4GM INH SCH ×3 (16:34→17:35)
[2021-01-22 16:45] LABS: HCG, SERUM QUALITATIVE NEGATIVE (NEGATIVE)
--- OUTSIDE RECORDS SUMMARY | 2021-01-22 16:45 | CCD ---
Author Author [facility] Organization [facility] Address Unknown Phone Unavailable Care Team Providers Care Operations Lead Name Role Phone MEGGAN, A CHIP GILMORE [...] Unavailable Feola, T Maryellen PA Unavailable Unavailable MEGGAN, A CHIP MD Unavailable [...] is protected by Article 27-F of the [facility] Public Health law. If you continue you may have access to information: Regarding HIV / AIDS; Provided by facilities licensed or operated by the [facility] Office of Mental Health; or Provided by the [facility] Office for People With Developmental Disabilities. If such information is present, then the following [facility] mandated warning applies: This information has [...] law may result in a fine or group home sentence or both. A general authorization for the release of medical or other information is NOT sufficient authorization for further disc losure. Encounters Encounter Providers Location Date Indications Data Source(s ) Unknown [address] [facility] [address] [address] 01/05/2021 12:00:00 AM EDT eCW1 ([facility]) Unknown [address] [place] [address] 01/05/2021 12:00:00 AM EDT eCW1 ([facility]) Unknown [address] [facility] [facility] [place] [address] 12/23/2020 12:00:00 AM EDT eCW1 ([facility]) Outpatient 11/23/2020 08:12:28 PM EDT - 08:18:00 PM EDT [facility] 11/23/2020 08:09:05 PM EDT [facility] ([facility]) Outpatient [address] [facility] [place] [address] 11/05/2020 12:00:00 AM EDT eCW1 ([facility]) Outpatient Attender: ABDULKADIR Fernandez Woman color repairer 08:30:00 AM EDT MEDENT (Fernandez Woman PANEL INSTALLER) [place] ( in Healthcare facility) Attender: CHIP GUPTA MD 06/09/2020 10:45:00 AM EST - 06/09/2020 06:38:00 PM EST [facility] Outpatient Attender: CHIP GUPTA MDAdmitter: CHIP GUPTA MD 06/09/2020 10:45:00 AM EST - 06/09/2020 06:38:00 PM EST BILATERAL MICROMASTIA Z41.1 [facility] BILATERAL MICROMASTIA Z41.1 Patient discharged. Outpatient Attender: CHIP GUPTA MD 06/05/2020 01:49:29 P M EST [facility] [place] [facility] Outpatient 05/23/2020 02:05:03 PM EST [facility] ([facility]) Outpatient Attender: Maryellen NAILS 021 01:49:34 PM EST - 05/23/2020 02:45:47 PM EST [facility] ([facility] ) Outpatient Attender: Maryellen NAILS 021 03:04:37 PM EST - 05/20/2020 03:36:55 PM EST [facility] ([facility] ) Outpatient Attender: ABDULKADIR Fernandez Woman color repairer 07/2019 02:00:00 PM EDT MEDENT (Fernandez Woman PANEL INSTALLER) Immunizations Vaccine Date Status Description Data Source(s) COVID-19 VACCINE Pfizer 2020 12:00:00 AM EST completed [facility] Vaccine Series Complete: YESThis Data wa s Submitted to [facility]. COVID-19 VACCINE Pfizer 03/25/2020 12:00:00 AM EST completed [facility] Vaccine Series Complete: NOThis Data was Submitted to [facility]. Medications Medication Brand Name Start Date Product Form Dose Route Admi nistrative Instructions Pharmacy Instructions Status Indications Reaction Description Data Source(s) Escitalopram 10 MG Oral Tablet Escitalopram Oxalate 10 MG Escitalopram Oxalate 10 MG 11/05/2020 12:00:00 AM EDT 1.0 {tablet} activ e Escitalopram Oxalate 10 MG eCW1 ([facility]) Escitalopram 10 MG Oral Tablet Escitalopram Oxalate 10 MG Escitalopram Oxalate 10 MG 11/05/2020 12:00:00 AM EDT 1.0 {tablet} activ e Escitalopram Oxalate 10 MG eCW1 ([facility]) Escitalopram 10 MG Oral Tablet Escitalopram Oxalate 10 MG Escitalopram Oxalate 10 MG 11/05/2020 12:00:00 AM EDT 1.0 {tablet} activ e Escitalopram Oxalate 10 MG eCW1 ([facility]) Escitalopram 10 MG Oral Tablet Escitalopram Oxalate 10 MG Escitalopram Oxalate 10 MG 11/05/2020 12:00:00 AM EDT 1.0 {tablet} activ e Escitalopram Oxalate 10 MG eCW1 ([facility]) Metronidazole 500 MG Oral Tablet Metronidazole 10/28/2020 12:00:00 AM EDT ORAL active MEDENT (Wi se Woman PANEL INSTALLER) Levonorgestrel 0.895062 MG/HR Drug Implant [Mirena] Mirena ( 52 MG) 12/07/2019 12:00:00 AM EDT active M EDENT (Fernandez Woman PANEL INSTALLER) Insurance Providers Payer name Policy type / Coverage type Policy ID Covered libertarian ID Covered libertarian's relationship to rhodes Policy Rhodes Plan Information [employer] [id number] Self [id number] RPR- Needs Payer Match [id number] Jossy [id number] [facility] Preferred Provider Org. [id number] Self [id number] [employer]. [id number] Self [id number] OTHER A [id number] [facility] [id number] [facility] [id number] [employer] [place] 306/806 [id number] SP [id number] BCBS [place] [facility] 303/803 [id number] SP [id number] [employer] [place] PPO 302/307 [id number] SP [id number] [employer] [place] CHOICE PLUS [id number] SP [id number] Problems, Conditions, and Diagnoses Code Display Name Description Problem Type Effective Dates Data Source(s) E55.9 [id number] Vitamin D deficiency, unspecified Problem 11/05/2020 12:00:00 AM EDT eCW1 ([facility]) F41.9 [id number] Anxiety Problem 11/05/2020 12:00:00 AM ED T eCW1 ([facility]) Surgeries/Procedures Procedure Description Date Indications Data Source(s) OFFICE OUTPATIENT VISIT 15 MINUTES 10/28/2020 12:00:00 AM EDT MEDENT (Fernandez Woman PANEL INSTALLER) Insert Intrauterine Device 12/19/2019 12:00:00 AM EDT MEDENT (Fernandez Woman PANEL INSTALLER) Injection, Anesthetic Agent,Paracervical Block 020 12:00:00 AM EDT MEDENT (Fernandez Woman PANEL INSTALLER) Results ID Date Data Source [id number] 11/25/2020 12:36:00 PM EDT [facility] Name Value Range Interpretation Code Description Data Ailyn rce(s) Supporting Document(s) SARS coronavirus 2 RNA [Presence] in Res piratory specimen by DIAMANTE with probe detection NEGATIVE [facility] This lab was ordered by [facility] a nd reported by [facility]. ID Date Data Source [id number] 11/23/2020 08:15:00 PM EDT [facility] Name Value Range Interpretation Code Description Data Ailyn rce(s) Supporting Document(s) SARS-CoV-2 RNA Resp Ql DIAMANTE+probe NOT DETECTED [facility] This lab was ordered by [facility] and reported by [facility]. ID Date Data Source VITAMIN [id number] 11/11/2020 12:00:00 AM EDT eCW1 ([facility]) Name Value Range Interpretation Code Description Data Ailyn rce(s) Supporting Document(s) 48.7 30.0-100.0 TOTAL 25(OH) VITAMIN D eC W1 ([facility]) ID Date Data Source FREE T4 & TSH PANEL 11/11/2020 12:00:00 AM EDT eCW1 ([facility]) Name Value Range Interpretation Code Description Data Ailyn rce(s) Supporting Document(s) 2.920 0.358-3.740 THYROID STIMULATING HORM ONE eCW1 ([facility]) 0.96 0.76-1.46 FREE T4 eCW1 ([facility]) ID Date Data Source LIPID PANEL (CARDIAC RISK) 11/11/2020 12:00:00 AM EDT eCW1 ( [facility]) Name Value Range Interpretation Code Description Data Ailyn rce(s) Supporting Document(s) Triglyceride [Mass/volume] in Serum or Plasma by calculation 138 <150 TRIGLYCERIDES LEVEL eCW1 ([facility]) Cholesterol [Moles/volume] in Serum or Plasma 161 <200 CHOLESTEROL LEVEL eCW1 ([facility]) Cholesterol in HDL [Moles/volume] in Serum or Plasma 52 >40 HDL CHOLESTEROL eCW1 ([facility]) Cholesterol in LDL [Mass/volume] in Serum or Plasma by calculation 81 <100 LDL CHOLESTEROL eCW1 ([facility]) 109 NON-HDL-C eCW1 ([facility]) 3.096 <5 CHOLESTEROL RISK RATIO eCW1 (Critical access hospital) ID Date Data Source [id number] 11/11/2020 12:00:00 AM EDT eCW1 ([facility]) Name Value Range Interpretation Code Description Data Ailyn rce(s) Supporting Document(s) Hemoglobin A1c/Hemoglobin.total in Blood 5.1 HEMOGLOBIN A1c eCW1 ([facility]) ID Date Data Source Comprehensive Metabolic Profile (CMP) 11/11/2020 12:00:00 AM EDT eCW1 ([facility]) Name Value Range Interpretation Code Description Data Ailyn rce(s) Supporting Document(s) 90 70-100 GLUCOSE, FASTING eCW1 ([facility]) 12 7-18 BLOOD UREA NITROGEN eCW1 ([facility]) > 60.0 >60 GLOMERULAR FILTRATION RATE eCW 1 ([facility]) 0.66 0.55-1.30 CREATININE FOR GFR eCW1 ([facility]) 105 98-107 CHLORIDE LEVEL eCW1 ([facility]) 139 136-145 SODIUM LEVEL eCW1 ([facility]) 3.9 3.5-5.1 POTASSIUM SERUM eCW1 ([facility]) 13 7-37 AST/SGOT eCW1 ([facility]) 31 21-32 CARBON DIOXIDE LEVEL eCW1 ([facility]) 8.6 8.5-10.1 CALCIUM LEVEL eCW1 ([facility]) 50 45-117 ALKALINE PHOSPHATASE eCW1 ([facility]) 22 12-78 ALT/SGPT eCW1 ([facility]) 7.4 6.4-8.2 TOTAL PROTEIN eCW1 ([facility]) 4.3 3.2-5.2 ALBUMIN eCW1 ([facility]) 0.3 0.2-1.0 BILIRUBIN,TOTAL eCW1 ([facility]) 1.4 1.2-2.2 ALBUMIN/GLOBULIN RATIO eCW1 ([facility]) ID Date Data Source CBC with Differential 11/11/2020 12:00:00 AM EDT eCW1 ([facility]) Name Value Range Interpretation Code Description Data Ailyn rce(s) Supporting Document(s) 6.9 4.0-10.0 WHITE BLOOD COUNT eCW1 ([facility]) 13.9 12.0-15.5 HEMOGLOBIN eCW1 ([facility]) 4.76 4.00-5.40 RED BLOOD COUNT eCW1 ([facility]) 87.0 80.0-96.0 MEAN CORPUSCULAR VOLUME e CW1 ([facility]) 41.4 36.0-47.0 HEMATOCRIT eCW1 ([facility]) 12.0 11.5-14.5 RED CELL DISTRIBUTION WID TH eCW1 ([facility]) 29.2 27.0-33.0 MEAN CORPUSCULAR HEMOGLOB IN eCW1 ([facility]) 33.6 32.0-36.5 MEAN CORPUSCULAR HGB CONC eCW1 ([facility]) 51.8 36.0-66.0 NEUTROPHILS % eCW1 ([facility]) 278 150-450 PLATELET COUNT, AUTOMATED eCW1 ([facility]) 8.0 2.0-8.0 MONO % eCW1 ([facility]) 37.5 24.0-44.0 LYMPH % eCW1 ([facility]) 1.4 0.0-3.0 EOS % eCW1 ([facility]) 1.2 0.0-1.0 BASO % eCW1 ([facility]) 3.6 1.5-8.5 NEUTROPHILS # eCW1 ([facility]) 2.6 1.5-5.0 LYMPH # eCW1 ([facility]) 0.1 0.0-0.5 EOS # eCW1 ([facility]) 0.6 0.0-0.8 MONO # eCW1 ([facility]) 0.1 0.0-0.2 BASO # eCW1 ([facility]) ID Date Data Source [id number] 06/13/2020 10:50:00 AM EST [facility] [address] [place], [place] [address]LSLWBFI NAME: EMERALD CASTRO OF : 1980REPORT: OPERATIONPATIENT NUMBER: [id number] STATUS: SDMEDICAL RECORD NUMBER: [id number] OF ADMISSION: 06/09/2020ATE OF DISCHARGE: 06/09/2020ATE OF [...] same procedure using another Natrelle Inspira style EIW278 ml implant. With both implants in place, [...] right breast implant had a serial numberof [id number] and the left breast implant had a serial number of [id number].DICTATED B Y: Chip Gupta, MDDictated: 06/10/2020 7:43DT: 06/10/2020 7:48Job #: [id number]:NOTE: [facility] computer generated reports are not confirmed orauthenticated unless they are signed by the providerElectronically Authenticated by:CHIP GUPTA MD On 06/13/2020 10:50 AM EST Name Value Range Interpretation Code Description Data Ailyn rce(s) Supporting Document(s) ID Date Data Source [id number] 06/04/2020 04:00:00 PM [facility] Name Value Range Interpretation Code Description Data Ailyn rce(s) Supporting Document(s) SARS coronavirus 2 RNA [Presence] in Res piratory specimen by DIAMANTE with probe detection NOT DETECTED [facility] This lab was reported by [facility] [place] [facility]. ID Date Data Source [id number] 06/05/2020 01:49:28 PM EST Lab [facility] Name Value Range Interpretation Code Description Data Ailyn rce(s) Supporting Document(s) SPECIMEN DESCRIPTION [facility] [place] COVID 19 RESULT (NDET) [facility] [place] [facility] NEGATIVE COVID-19 RESULTS DONOT PRECLUDE COVID-2019 INFECTION ANDSHOULD NOT BE USED THE SOLE BASISFOR PATIENT MANAGEMENT DECISIONS. COMMENT Lab [facility] [place] [facility] THE [place] FDA HAS MADE THIS TEST AVAILABL EUNDER AN EMERGENCY USE AUTHORIZATION(EUA) FOR THE DETECTION AND/OR DIAGNOSISOF THE VIRUS THAT CAUSES COVID-19.THIS ASSAY AMPLIFIES AND DETECTS TARGETDNA USING MIXER AND SCALER- MEDIATEDAMPLIFICATIONTESTING PERFORMED ON [employer] FIRST TEST [facility] [place] [facility] [employer] SYMPTOMATIC [facility] [place] [facility] [place] DATE OF SYMPT ONSET [facility] HOSPITALIZED [facility] [place] [facility] [place] [facility] [place] [facility] [place] CONGREGATE CARE SET [facility] [facility] [place] [facility] [place] ID Date Data Source [id number] 05/23/2020 12:00:00 AM EST [facility] Name Value Range Interpretation Code Description Data Ailyn rce(s) Supporting Document(s) SARS coronavirus 2 RNA [Presence] in Res piratory specimen by DIAMANTE with probe detection NEGATIVE [facility] by [facility]. ID Date Data Source [id number] 05/20/2020 12:00:00 AM EST [facility] Name Value Range Interpretation Code Description Data Ailyn rce(s) Supporting Document(s) SARS coronavirus 2 RNA [Presence] in Res piratory specimen by DIAMANTE with probe detection NEGATIVE [facility] This lab was ordered by [facility] and reported by [facility]. ID Date Data Source [id number] 05/20/2020 12:00:00 AM EST [facility] Name Value Range Interpretation Code Description Data Ailyn rce(s) Supporting Document(s) Carestart Rapid COVID Antigen Test Negative [facility] lab [facility] ID Date Data Source [id number] 12/07/2019 12:00:00 PM EDT MEDENT (Fernandez Woman PANEL INSTALLER) Name Value Range Interpretation Code Description Data Ailyn rce(s) Supporting Document(s) TP Reflex HPV ASCUS Laboratory test result MEDENT (Fernandez Woman PANEL INSTALLER) TP Reflex HPV ASCUS Laboratory test result MEDENT (Fernandez Woman PANEL INSTALLER) SPECIMEN PART------ A. Cervical, Endocervical, ThinPrep Pap (Associate Product Manager) CYTOLOGY HX-------- Date of Last Menstrual Period: 11/12/19 FINAL DIAGNOSIS---- INTERPRETATION: Negative for Intraepithelial Lesion or Malignancy. SPECIMEN ADEQUACY:Satisfactory for evaluation. Endocervical/transformation zone component present. Procedure Social History Code Duration Value Status Description Data Source(s ) Smoking 10/28/2020 12:00:00 AM EDT Patient has never smoked co mpleted Patient has never smoked MEDENT (Fernandez Woman PANEL INSTALLER) Vital Signs ID Date Data Source UNK Name Value Range Interpretation Code Description Data Source(s) Body weight 163 [lb_av] 163 [lb_av] eCW1 ([facility]) Body weight 73.94 kg 73.94 kg W1 ([facility]) Body height 67 [in_i] 67 [in_i] eCW1 ([facility]) Body mass index (BMI) [Ratio] 25.53 kg/m2 25.53 kg/m2 W1 ([facility]) Heart rate 78 /min 78 /min W1 ([facility]) Respiratory rate 16 /min 16 /min W1 ([facility]) Body temperature 97.4 [degF] 97.4 [degF] eCW1 ( [facility]) Systolic blood pressure 118 mm[Hg] 118 mm[Hg] e CW1 ([facility]) Diastolic blood pressure 72 mm[Hg] 72 mm[Hg] eCW1 ([facility]) Body surface area 1.81 m2 1.81 m2 MEDENT (Fernandez Woman PANEL INSTALLER) Systolic blood pressure 106 mm[Hg] 106 mm[Hg] M EDENT (Fernandez Woman PANEL INSTALLER) Diastolic blood pressure 62 mm[Hg] 62 mm[Hg] MEDENT (Fernandez Woman PANEL INSTALLER) Body height 66 [in_i] 66 [in_i] MEDENT (Fernandez Woman PANEL INSTALLER) 5'6" Body weight 158.00 [lb_av] 158.00 [lb_av] MEDEN T (Fernandez Woman PANEL INSTALLER) Body mass index (BMI) [Ratio] 25.5 kg/m2 25.5 k g/m2 MEDENT (Fernandez Woman PANEL INSTALLER) Body surface area Derived from formula 1.81 m2 1.81 m2 MEDENT (Fernandez Woman PANEL INSTALLER) Patient Treatment Plan of Care Planned Activity Planned Date Details Description Data Source (s) Escitalopram 10 MG Oral Tablet 11/05/2020 12:00:00 AM EDT eCW1 ([facility]) Escitalopram 10 MG Oral Tablet 11/05/2020 12:00:00 AM EDT eCW1 ([facility]) Escitalopram 10 MG Oral Tablet 11/05/2020 12:00:00 AM EDT eCW1 ([facility]) Escitalopram 10 MG Oral Tablet 11/05/2020 12:00:00 AM EDT eCW1 ([facility])
[2021-01-22 16:54] LABS: ALBUMIN 4.6 GM/DL (3.2-5.2); ALT/SGPT 20 U/L (12-78); BILIRUBIN,DIRECT 0.2 MG/DL (0.0-0.2); BILIRUBIN,TOTAL 0.6 MG/DL (0.2-1.0); BLOOD UREA NITROGEN 11 MG/DL (7-18); CALCIUM LEVEL 9.3 MG/DL (8.5-10.1); CARBON DIOXIDE LEVEL 26 MEQ/L (21-32); CHLORIDE LEVEL 106 MEQ/L (98-107); CK-MB VALUE MASS < 1.0 NG/ML (<3.6); CPK CREATINE PHOSPHOKINASE 66 U/L (26-192); CREATININE FOR GFR 0.78 MG/DL (0.55-1.30); GLOMERULAR FILTRATION RATE > 60.0 (>60); GLUCOSE, FASTING 106 MG/DL (70-100); MB/CK RELATIVE INDEX 1.52 (< OR =4); NT-PRO BNP 17 PG/ML (<125); POTASSIUM SERUM 3.6 MEQ/L (3.5-5.1); SODIUM LEVEL 138 MEQ/L (136-145); TOTAL PROTEIN 7.7 GM/DL (6.4-8.2); TROPONIN I < 0.02 NG/ML (< 0.10)
[2021-01-22 17:01] LABS: ERYTHROCYTE SEDIMENTATION RATE 5 mm/hr (0-20)
--- NOTE | 2021-01-22 17:13 | REP ---
INDICATION: DYSPNEA/COUGH. COMPARISON: 02/15/2011. TECHNIQUE: Single portable AP view of the chest was performed. FINDINGS: There is no acute infiltrate or pulmonary edema. Lungs are clear. The heart is not significantly enlarged. The mediastinal silhouette is unremarkable. The visualized osseous structures are intact. IMPRESSION: No acute pulmonary disease. <Electronically signed by Darrell Gao > 01/22/21 2078
[2021-01-22] MEDS ORDERED: KETOROLAC 30 MG/ML 1ML VIAL IV ONE (17:40)
[2021-01-22] MEDS ORDERED: methylPREDNISolone 125MG 2ML VIAL IV ONE (17:40)
[2021-01-22] MEDS ORDERED: PRED20TA PO (17:53)
[2021-01-22] MEDS ORDERED: VENTAER INH (17:53)
--- NOTE | 2021-01-22 19:13 | ECGEPIP ---
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
== END 2021-01-22 18:21 | disposition home or self-care (01) ==
LOC: M ED 15:40
DX: J45.909 Unspecified asthma, uncomplicated (principal); B34.8 Other viral infections of unspecified site; Z79.899 Other long term (current) drug therapy
CPT/HCPCS: 36415; 71045; 80048; 80076; 82550; 82553; 83880; 84443; 84484; 84703; 85025; 85379; 85610; 85652; 85730; 86140; 87798; 93005; 94640; 96361; 96374; 96375; 99284; J1885; J2930

== ENCOUNTER → 2021-01-22 | Outpatient (REF) ==
[~2021-01-22] MED LIST changes: +PRED20TA PO; +VENTAER INH
[2021-01-22 13:54] LABS: RSV AMPLIFICATION NEGATIVE (NEGATIVE)
== END ==
LOC: M EMP 12:51
PROVIDERS: ATTEND Family Medicine
DX: Z11.52 Encounter for screening for COVID-19 (principal); Z20.822 Contact with and (suspected) exposure to COVID-19

== ENCOUNTER → 2021-02-15 | Outpatient (CLI) | payer BC ==
[~2021-02-15] MED LIST changes: +PRED20TA PO; +VENTAER INH
== END ==
LOC: M LAB 21:01
PROVIDERS: ATTEND Nurse Practitioner Family
DX: Z11.1 Encounter for screening for respiratory tuberculosis (principal)

== ENCOUNTER → 2021-06-25 | Outpatient (REF) | payer BC ==
[2021-06-25 13:46] LABS: APPEARANCE, URINE CLEAR (CLEAR); BACTERIA, URINE AUTO 1+ (NEGATIVE); BILIRUBIN, URINE AUTO NEGATIVE (NEGATIVE); BLOOD, URINE BLOOD NEGATIVE (NEGATIVE); COLOR, URINE AMBER (YELLOW); GLUCOSE, URINE (UA) AUTO NEGATIVE (NEGATIVE); KETONE, URINE AUTO TRACE mg/dL (NEGATIVE); LEUKOCYTE ESTERASE, URINE AUTO NEGATIVE (NEGATIVE); NITRITE, URINE AUTO POSITIVE (NEGATIVE); PROTEIN, URINE AUTO NEGATIVE (NEGATIVE); RBC, URINE AUTO 2 /HPF (0-3); SPECIFIC GRAVITY URINE AUTO 1.015 (1.002-1.035); SQUAMOUS EPITHELIAL CELL UR AU 12 /HPF (0-6); WBC, URINE AUTO 18 /HPF (0-3)
== END ==
LOC: M SFHCPLAZ 13:00
DX: R10.30 Lower abdominal pain, unspecified (principal)

== ENCOUNTER → 2022-03-04 | Outpatient (CLI) | payer OTHER ==
[2022-03-04 13:59] LABS: BASO # 0.1 10^3/uL (0.0-0.2); BASO % 1.2 % (0.0-1.0); EOS # 0.1 10^3/uL (0.0-0.5); EOS % 1.6 % (0.0-3.0); HEMATOCRIT 40.1 % (36.0-47.0); HEMOGLOBIN 13.3 g/dl (12.0-15.5); LYMPH # 1.5 10^3/uL (1.5-5.0); LYMPH % 26.6 % (24.0-44.0); MEAN CORPUSCULAR HEMOGLOBIN 29.1 pg (27.0-33.0); MEAN CORPUSCULAR HGB CONC 33.2 g/dl (32.0-36.5); MEAN CORPUSCULAR VOLUME 87.7 fl (80.0-96.0); MONO # 0.5 10^3/uL (0.0-0.8); NEUTROPHILS # 3.5 10^3/uL (1.5-8.5); NEUTROPHILS % 62.4 % (36.0-66.0); PLATELET COUNT, AUTOMATED 305 10^3/uL (150-450); RED BLOOD COUNT 4.57 10^6/uL (4.00-5.40); WHITE BLOOD COUNT 5.6 10^3/uL (4.0-10.0)
[2022-03-04 14:07] LABS: THYROID STIMULATING HORMONE 0.498 uIU/ML (0.55-4.78)
[2022-03-04 14:11] LABS: TOTAL 25(OH) VITAMIN D 28.6 NG/ML (20.0-100.0); VITAMIN B12 LEVEL 390 PG/ML (211-911)
[2022-03-04 14:18] LABS: ALBUMIN 4.3 G/DL (3.2-5.2); ALKALINE PHOSPHATASE 64 U/L (46-116); ALT/SGPT 22 U/L (7.0-40); AST/SGOT 19 U/L (<34); BILIRUBIN,TOTAL 0.3 MG/DL (0.3-1.2); BLOOD UREA NITROGEN 11 MG/DL (9-23); CARBON DIOXIDE LEVEL 28 MMOL/L (20-31); CHLORIDE LEVEL 103 MMOL/L (98-107); CREATININE FOR GFR 0.61 MG/DL (0.55-1.30); FOLATE 19.54 NG/ML (>5.4); GLOMERULAR FILTRATION RATE > 60.0 (>60); GLUCOSE, FASTING 79 MG/DL (60-100); POTASSIUM SERUM 4.4 MMOL/L (3.5-5.1); SODIUM LEVEL 139 MMOL/L (136-145); TOTAL PROTEIN 6.9 G/DL (5.7-8.2)
== END ==
LOC: M PLALAB 10:32
PROVIDERS: ATTEND Nurse Practitioner Family
DX: Z11.1 Encounter for screening for respiratory tuberculosis (principal); R53.83 Other fatigue; E55.9 Vitamin D deficiency, unspecified

== ENCOUNTER → 2022-07-20 | Outpatient (REF) | payer OTHER | LOC: M SFHCPLAZ 10:29 | PROVIDERS: ATTEND Nurse Practitioner Family | DX: R79.89 Other specified abnormal findings of blood chemistry (principal); E53.8 Deficiency of other specified B group vitamins; E55.9 Vitamin D deficiency, unspecified; Z53.8 Procedure and treatment not carried out for other reasons ==

== ENCOUNTER → 2022-07-20 | Outpatient (CLI) | payer OTHER ==
[2022-07-20 15:31] LABS: THYROID STIMULATING HORMONE 1.427 uIU/ML (0.55-4.78); TOTAL 25(OH) VITAMIN D 50.7 NG/ML (20.0-100.0)
[2022-07-20 16:05] LABS: FREE T4 0.91 NG/DL (0.89-1.76)
== END ==
LOC: M PLALAB 10:30
PROVIDERS: ATTEND Nurse Practitioner Family
DX: R79.89 Other specified abnormal findings of blood chemistry (principal); E53.8 Deficiency of other specified B group vitamins; E55.9 Vitamin D deficiency, unspecified

== ENCOUNTER → 2023-05-03 | Outpatient (CLI) | payer OTHER | LOC: M PLALAB 10:04 | PROVIDERS: ATTEND Nurse Practitioner Family | DX: Z11.1 Encounter for screening for respiratory tuberculosis (principal) ==

== ENCOUNTER 2024-11-30 15:17 | Observation (INO) | payer OTHER ==
[~2024-11-30] VITALS: Ht 170.2 cm; Wt 81.1 kg
[~2024-11-30 15:17] MED LIST changes: +AMOX875T2 PO
[2024-11-30 15:49] LABS: BASO # 0.1 10^3/uL (0.0-0.2); BASO % 0.9 % (0.0-1.0); EOS # 0.1 10^3/uL (0.0-0.5); EOS % 0.9 % (0.0-3.0); LYMPH # 2.3 10^3/uL (1.5-5.0); LYMPH % 33.3 % (24.0-44.0); MONO # 0.5 10^3/uL (0.0-0.8); MONO % 7.4 % (2.0-8.0); NEUTROPHILS # 4.0 10^3/uL (1.5-8.5); NEUTROPHILS % 57.2 % (36.0-66.0); PLATELET COUNT, AUTOMATED 367 10^3/uL (150-450)
[2024-11-30] MEDS ORDERED: HOME MED LIST COMPLETE! XX SCH (17:05)
[2024-11-30 17:06] LABS: ERYTHROCYTE SEDIMENTATION RATE 10 mm/hr (0-20)
[2024-11-30 17:08] LABS: ALT/SGPT 18 U/L (7.0-40); AST/SGOT 21 U/L (<34); CALCIUM LEVEL 9.6 MG/DL (8.5-10.1); CARBON DIOXIDE LEVEL 26.5 MMOL/L (20-31); CHLORIDE LEVEL 103 MMOL/L (98-107); CREATININE FOR GFR 0.78 MG/DL (0.55-1.30); GLOMERULAR FILTRATION RATE > 90.0 (>58); POTASSIUM SERUM 4.3 MMOL/L (3.5-5.1); SODIUM LEVEL 141 MMOL/L (136-145)
[2024-11-30 17:09] LABS: MAGNESIUM LEVEL 2.1 MG/DL (1.8-2.4)
[2024-11-30] MEDS ORDERED: PROHANCE 279.3MG/ML 5ML VIAL As Ordered ONE (18:19)
[2024-11-30] MEDS ORDERED: PROHANCE 279.3MG/ML 15ML VIAL As Ordered ONE (18:19)
[2024-11-30] MEDS: ASPIRIN 81 MG CHEWABLE TABLET PO ONE (21:32)
[2024-11-30] MEDS: ATORVASTATIN 20 MG TAB PO ONE (21:33)
[2024-12-01] VITALS (21 sets, daily range): BP systolic 105–132; BP diastolic 53–82; TEMP 97.1–98.4; O2SAT 95–100
[2024-12-01 01:08] LABS: ESTIMATED AVERAGE GLUCOSE 103.0 MG/DL (60-110)
[2024-12-01 01:21] LABS: INR 1.03
[2024-12-01 01:23] LABS: CK-MB VALUE MASS < 1.0 NG/ML (<3.6)
[2024-12-01 01:26] LABS: C REACTIVE PROTEIN QUANTITATIV < 0.50 MG/DL (<1.0); CHOLESTEROL LEVEL 173 MG/DL (<200); CHOLESTEROL RISK RATIO 3.81 (<5); CPK CREATINE PHOSPHOKINASE 251 U/L (34-145); LDL CHOLESTEROL 110.9 MG/DL (<100); NON-HDL-C 127.7 MG/DL; TRIGLYCERIDES LEVEL 84 MG/DL (<150)
[2024-12-01 01:45] LABS: VITAMIN B12 LEVEL > 2000 PG/ML (211-911)
[2024-12-01] MEDS: ENOXAPARIN 40 MG/0.4 ML SYRINGE (J1650 PER 10MG) SC SCH (08:52)
[2024-12-01] MEDS ORDERED: ASPI81TA26 PO (18:18)
[2024-12-01] MEDS ORDERED: ATORVASTATIN 20 MG TAB PO SCH ×2 (21:00)
[2024-12-04 12:33] LABS: SSA SJOGRENS A <1.0 NEG AI (<1.0 NEG); SSB SJOGRENS B <1.0 NEG AI (<1.0 NEG)
[2024-12-04 15:28] LABS: HOMOCYST(E)INE SERUM 7.9 umol/L (< or = 11.0)
[2024-12-05 14:07] LABS: PROTEIN S ANTIGEN FREE 117 % normal (50-147); PROTEIN S ANTIGEN TOTAL 91 % normal (70-140)
[2024-12-05 14:16] LABS: CARDIOLIPIN IGA ANTIBODY < 2.0 APL-U/mL (<20.0); CARDIOLIPIN IGG ANTIBODY < 2.0 GPL-U/mL (<20.0); CARDIOLIPIN IGM ANTIBODY 2.2 MPL-U/mL (<20.0)
[2024-12-05] MEDS ORDERED: DOXY-442 PO (16:19)
[2024-12-05 17:37] LABS: PROTEIN C ANTIGEN 108 % normal (70-140)
[2024-12-05 20:31] LABS: LYME TOTAL ANTIBODY CIA <= 0.90 Index (<=0.90)
[2024-12-05 22:52] LABS: BORRELIA SPECIES DNA NOT DETECTED (NOT DETECT)
[2024-12-06 10:20] LABS: DRVV SCREEN 32.9 SECONDS
[2024-12-06 10:23] LABS: PTT LUPUS TYPE ANTICOAG SCREEN 0.85 (0-1.20)
[2024-12-06 14:38] LABS: FACTOR V LEIDEN FOR MEDINET NEGATIVE
[2024-12-06 23:57] LABS: ANTI THROMBIN 3 ANTIGEN IMMUNO 92 % normal (80-120); ANTI THROMBIN 3 FUNCT ACTIVITY 114 % normal (80-135)
[2024-12-08 20:57] LABS: FACTOR II PROTHROMBIN GENE AN NEGATIVE
== END 2024-12-01 18:47 | disposition home or self-care (01) ==
LOC: M ED 15:17 → EEVIPCON 15:17 → M ED INP 15:18 → M PCU 12-01 00:28
PROVIDERS: ADMIT Student in an Organized Health Care Education/Training Program; ATTEND Student in an Organized Health Care Education/Training Program
DX: R20.0 Anesthesia of skin (principal); R20.2 Paresthesia of skin; R53.1 Weakness; M48.02 Spinal stenosis, cervical region; M47.812 Spondylosis without myelopathy or radiculopathy, cervical region; M51.16 Intervertebral disc disorders with radiculopathy, lumbar region; M48.07 Spinal stenosis, lumbosacral region; Z86.69 Personal history of other diseases of the nervous system and sense organs; Z86.19 Personal history of other infectious and parasitic diseases; E53.8 Deficiency of other specified B group vitamins; I10 Essential (primary) hypertension; Z98.890 Other specified postprocedural states; Z82.49 Family history of ischemic heart disease and other diseases of the circulatory system
CPT/HCPCS: 36415; 70544; 70547; 70553; 72156; 72157; 72158; 80053; 80061; 81240; 82550; 82553; 82607; 82746; 83036; 83090; 83735; 83921; 84443; 84484; 85025; 85046; 85300; 85301; 85302; 85305; 85306; 85610; 85652; 85730; 86036; 86038; 86140; 86147; 86235; 86618; 86780; 86850; 86900; 86901; 87468; 87469; 87478; 87484; 87801; 93005; 93306; 96372; 99285; A9576; J1650